=== PATIENT | female | born 1950 | race Caucasian/White ===

== ENCOUNTER 2018-02-27 17:38 | Inpatient (IN) | payer OTHER | END 2018-03-03 14:35 | disposition home or self-care (01) | DRG 872 | LOC: FER 17:38 → FM/S 23:48 | PROVIDERS: ADMIT Internal Medicine | CPT/HCPCS: 36415; 71045-TC-FY; 74019-TC-FY; 74177-TC; 80048; 80053; 81003; 81015; 83605; 83735; 84100; 85025; 85027; 87040; 87070; 87086; 87430; 93005; 99283-25; G0378; J0131; J7030 ==

== ENCOUNTER 2021-09-05 14:29 | Emergency (ER) | payer OTHER ==
[2021-09-05 14:48] VITALS: BP 142/65; PULSE 76; TEMP 98.3; BMI 28.3
[2021-09-05] MEDS ORDERED: LIDOCAINE 5% TOPICAL PATCH TP ONE (14:52)
[2021-09-05] MEDS ORDERED: ACETAMINOPHEN 500 MG TABLET (FP) PO ONE (14:52)
[2021-09-05] MEDS ORDERED: diazePAM 2 MG TABLET PO ONE (14:52)
[2021-09-05] MEDS ORDERED: LIDOCAINE 5% TOPICAL PATCH ONE (14:54)
[2021-09-05] MEDS ORDERED: ACETAMINOPHEN 500 MG TABLET (FP) ONE (14:54)
[2021-09-05] MEDS ORDERED: diazePAM 2 MG TABLET ONE (14:54)
[2021-09-05] MEDS ORDERED: LIDOCAINE PATCH REMOVAL MC SCH (22:00)
== END 2021-09-05 16:02 | disposition home or self-care (01) ==
LOC: FER 14:29
DX: M25.512 Pain in left shoulder (principal)
CPT/HCPCS: 73030-TC-LT-FY; 99283-25

== ENCOUNTER 2022-05-31 20:40 | Observation (INO) | payer OTHER ==
[2022-05-31 21:44] LABS: HEMATOCRIT 38.1 % (32.4-45.2); HEMOGLOBIN 13.5 G/dL (10.7-15.3); MCH 32.6 pg (25.7-33.7); MCHC 35.3 g/dl (32.0-36.0); MEAN CELL VOLUME 92.3 fl (80-96); MEAN PLT VOLUME 8.4 fl (7.5-11.1); PLATELET COUNT 329.7 10^3/uL (134-434); RBC 4.13 10^6/uL (3.60-5.2); RDW 13.9 % (11.6-15.6); WHITE BLOOD COUNT 13.1 10^3/uL (4.0-10.8)
[2022-05-31 22:00] LABS: INR 0.9 (0.83-1.09); PROTHROMBIN TIME (PATIENT) 10.3 SEC (9.7-13.0)
[2022-05-31 22:05] LABS: PLATELET ESTIMATE ADEQUATE
[2022-05-31 22:07] LABS: ALBUMIN 3.8 g/dl (3.4-5.0); BILIRUBIN,TOTAL 0.5 mg/dl (0.2-1); CALCIUM 9.4 mg/dl (8.5-10); CREATININE 0.8 mg/dl (0.55-1.3); TOT PROT 6.8 g/dl (6.4-8.2)
[2022-05-31] MEDS ORDERED: SODIUM CHLORIDE 1,000 ML IV STA (23:25)
[2022-05-31] MEDS ORDERED: SODIUM CHLORIDE 500 ML IV STA (23:36)
[2022-06-01] MEDS ORDERED: ACETAMINOPHEN 325 MG TABLET (FP) PO PRN (00:19)
[2022-06-01] MEDS ORDERED: DOCUSATE SODIUM 100 MG CAPSULE (FP) PO PRN (00:24)
[2022-06-01] MEDS ORDERED: ASPIRIN 81 MG CHEWABLE TABLETS PO ONE (00:26)
[2022-06-01] MEDS ORDERED: PRAMIPEXOLE DIHYDROCHLORIDE 0.25 MG TABLET PO SCH (00:35)
[2022-06-01] MEDS ORDERED: CITALOPRAM HYDROBROMIDE 20 MG TABLET PO SCH (00:35)
[2022-06-01] MEDS ORDERED: MELATONIN 5 MG TABLETS PO PRN (00:37)
[2022-06-01] MEDS ORDERED: diphenhydrAMINE HCL 50 MG CAPSULE PO PRN (00:37)
[2022-06-01] MEDS ORDERED: MAG HYDROX/AL HYDROX/SIMETH 30 ML UNIT-DOSE CUP PO PRN (00:42)
[2022-06-01 01:10] VITALS: BMI 27.1
[2022-06-01 07:21] LABS: CREATININE 0.8 mg/dl (0.55-1.3); MAGNESIUM 1.9 mg/dL (1.8-2.4)
[2022-06-01 08:12] LABS: BASO % 0.1 % (0-2.0); HEMATOCRIT 36.6 % (32.4-45.2); HEMOGLOBIN 12.5 GM/dL (10.7-15.3); MCH 31.1 pg (25.7-33.7); MCHC 34.2 g/dl (32.0-36.0); MEAN PLT VOLUME 8.8 fl (7.5-11.1); MONO % 6.5 % (3.8-10.2); NEUT % 83.4 % (42.8-82.8); PLATELET COUNT 303 10^3/uL (134-434); RBC 4.02 M/mm3 (3.60-5.2); RDW 13.5 % (11.6-15.6); WHITE BLOOD COUNT 10.8 K/mm3 (4.0-10.0)
[2022-06-01] MEDS ORDERED: TRIAMTERENE AND HCTZ - 37.5 MG/25 MG CAPSULE PO SCH (10:00)
[2022-06-01] MEDS ORDERED: ENOXAPARIN NA (PORCINE) 40 MG/0.4 ML DISP.SYRIN SQ SCH (10:00)
[2022-06-01] MEDS ORDERED: PANTOPRAZOLE 40 MG TABLET PO SCH (10:00)
[2022-06-01] MEDS ORDERED: amLODIPine BESYLATE 10 MG TABLET (FP) PO SCH (10:00)
[2022-06-01 13:21] VITALS: BP 140/69; PULSE 61; RESP 18; TEMP 97.9
[2022-06-01] MEDS ORDERED: ATORVASTATIN CA 80 MG TABLET (FP) PO SCH (22:00)
[2022-06-01] MEDS ORDERED: ATORVASTATIN CA 10 MG TABLET (FP) PO SCH (22:00)
[2022-06-09 20:10] LABS: METHYLMALONIC ACID- 302 nmol/L (0-378)
== END 2022-06-01 13:15 | disposition home or self-care (01) ==
LOC: FER 20:40 → FM/S 06-01 00:04
PROVIDERS: ADMIT Hospitalist
PROC: 3E023GC Introduction of Other Therapeutic Substance into Muscle, Percutaneous Approach (ICD-10-PCS; principal; 2022-06-01)
PROC: 3E0337Z Introduction of Electrolytic and Water Balance Substance into Peripheral Vein, Percutaneous Approach (ICD-10-PCS; 2022-06-01)
PROC: 3E023GC Introduction of Other Therapeutic Substance into Muscle, Percutaneous Approach (ICD-10-PCS; 2022-06-01)
PROC: 3E0337Z Introduction of Electrolytic and Water Balance Substance into Peripheral Vein, Percutaneous Approach (ICD-10-PCS; 2022-06-01)
DX: G45.9 Transient cerebral ischemic attack, unspecified (principal); K21.9 Gastro-esophageal reflux disease without esophagitis; R45.1 Restlessness and agitation; G89.29 Other chronic pain; M54.9 Dorsalgia, unspecified; F32.A Depression, unspecified; I10 Essential (primary) hypertension; K59.09 Other constipation; E78.5 Hyperlipidemia, unspecified; Z88.6 Allergy status to analgesic agent; Z88.0 Allergy status to penicillin; Z87.19 Personal history of other diseases of the digestive system; Z87.898 Personal history of other specified conditions; Z86.73 Personal history of transient ischemic attack (TIA), and cerebral infarction without residual deficits; M54.50 Low back pain, unspecified
CPT/HCPCS: 36415; 70450-TC; 70551-TC; 71045-TC-FY; 80048; 80053; 80061; 82136; 82607; 83036; 83735; 83918; 84439; 84443; 84484; 85025; 85027; 85610; 85730; 86780; 93005; 96360; 96372; 97116-GP; 97162-GP; 99285-25; C9803-CS; G0378; U0003; U0005

== ENCOUNTER 2023-07-06 16:54 | Emergency (ER) | payer OTHER ==
[2023-07-06 17:10] VITALS: BP 148/81; PULSE 71; RESP 20; TEMP 98.4; BMI 28.3
[2023-07-06 18:23] LABS: EPITHELIAL CELLS FEW /hpf
== END 2023-07-06 18:51 | disposition home or self-care (01) ==
LOC: FER 16:54
DX: N39.0 Urinary tract infection, site not specified (principal)
CPT/HCPCS: 81003; 81015; 87086; 87186; 99283-25

== ENCOUNTER 2023-09-22 15:14 | Emergency (ER) | payer OTHER ==
[2023-09-22] MEDS ORDERED: ACETAMINOPHEN 1000 MG/100 ML BAG IVPB ONE (15:29)
[2023-09-22] MEDS ORDERED: ONDANSETRON 4 MG/2 ML VIAL IVPUSH ONE (15:29)
[2023-09-22] MEDS ORDERED: SODIUM CHLORIDE 0.9% 1000 ML INFUS.BAG IV ONE (15:29)
[2023-09-22 15:30] VITALS: BP 138/87; PULSE 78; RESP 18; TEMP 98.3; BMI 27.3
[2023-09-22] MEDS ORDERED: ACETAMINOPHEN INJECTION 100 ML IVPB ONE (16:02)
[2023-09-22] MEDS ORDERED: ONDANSETRON 4 MG/2 ML VIAL ONE (16:02)
[2023-09-22] MEDS ORDERED: DEXAMETHASONE SOD PHOSPHATE 4 MG/1 ML VIAL IVPUSH ONE (16:10)
[2023-09-22] MEDS ORDERED: diazePAM 2 MG TABLET PO ONE (16:10)
[2023-09-22 16:21] LABS: HEMATOCRIT 37.2 % (32.4-45.2); HEMOGLOBIN 12.2 G/dL (10.7-15.3); MCH 31.7 pg (25.7-33.7); MCHC 32.7 g/dl (32.0-36.0); MEAN CELL VOLUME 96.8 fl (80-96); MEAN PLT VOLUME 10.5 fl (7.5-11.1); PLATELET COUNT 247.9 10^3/uL (134-434); RBC 3.84 10^6/uL (3.60-5.2); RDW 15.1 % (11.6-15.6); WHITE BLOOD COUNT 4.8 10^3/uL (4.0-10.8)
[2023-09-22] MEDS ORDERED: DEXAMETHASONE SOD PHOSPHATE 4 MG/1 ML VIAL ONE (16:28)
[2023-09-22] MEDS ORDERED: diazePAM 2 MG TABLET ONE (16:28)
[2023-09-22 16:33] LABS: ALBUMIN 3.4 g/dl (3.4-5.0); BILIRUBIN,TOTAL 0.5 mg/dl (0.2-1); CALCIUM 9.1 mg/dl (8.5-10.1); CREATININE 0.9 mg/dl (0.6-1.3); MAGNESIUM 1.6 mg/dL (1.8-2.4); TOT PROT 5.4 g/dl (6.4-8.2)
[2023-09-22 16:49] LABS: PLATELET ESTIMATE ADEQUATE
== END 2023-09-22 17:15 | disposition home or self-care (01) ==
LOC: FER 15:14
PROC: 3E033NZ Introduction of Analgesics, Hypnotics, Sedatives into Peripheral Vein, Percutaneous Approach (ICD-10-PCS; principal; 2023-09-22)
PROC: 3E033GC Introduction of Other Therapeutic Substance into Peripheral Vein, Percutaneous Approach (ICD-10-PCS; 2023-09-22)
PROC: 3E033GC Introduction of Other Therapeutic Substance into Peripheral Vein, Percutaneous Approach (ICD-10-PCS; 2023-09-22)
DX: M54.50 Low back pain, unspecified (principal); M51.26 Other intervertebral disc displacement, lumbar region; N39.0 Urinary tract infection, site not specified; Z20.822 Contact with and (suspected) exposure to COVID-19
CPT/HCPCS: 0241U-QW; 36415; 80053; 81003; 81015; 83735; 84484; 85027; 87086; 87186; 93005; 99284-25